=== PATIENT | male | born 1980 | race Caucasian/White ===

== ENCOUNTER → 2018-06-17 15:48 | Outpatient (CLI) | payer BC, SELFPAY ==
[2018-06-17 17:02] LABS: Absolute Lymphocyte Count 2.15 X10^3/ul (0.83-4.51); Absolute Neutrophil Count 3.8 X10^3/uL (2.0-7.7); Basophil# 0.02 X10^3/uL; Basophil% 0.3 % (0-1); Eosinophil# 0.07 X10^3/uL; Hemoglobin 14.8 g/dl (13.0-16.5); Lymphocyte # 2.15 X10^3/ul (4.0); Mean Corp Hgb Conc 33.6 g/gl (32-36); Mean Corpuscular Hgb 29.2 pg (27.0-32.0); Mean Corpuscular Volume 86.8 fL (80-94); Mean Platelet Vol. 10.7 fl (6.2-12.0); Monocyte# 0.63 X10^3/uL; Monocyte% 9.4 % (0-10); Neutrophil # 3.84 X10^3/uL (2.7-7.7); Neutrophil % 57.3 % (47-70); Platelet Count 252 K/mm3 (150-450); RBC Distribution Width SD 41.4 fl (35.1-43.9); Red Blood Count 5.07 M/mm3 (4.6-6.2); White Blood Count 6.7 K/mm3 (4.4-11.0)
[2018-06-17 17:03] LABS: POSITIVE COUNT NO; POSITIVE DIFFERENTIAL NO; POSITIVE MORPHOLOGY NO
[2018-06-17 17:42] LABS: ALB/GLOB Ratio 1.1 RATIO (0.9-2.4); AST(SGOT) 21 U/L (15-37); Alanine Aminotransfer ALT/SGPT 51 U/L (16-61); Alkaline Phosphatase 67 U/L (45-117); Anion Gap 8 (5-15); BUN 15 mg/dL (7-18); BUN/Creat Ratio 16.4 RATIO (10-20); CRP < 2.90 mg/L (0.0-3.0); Calcium,Total 8.4 mg/dL (8.5-10.1); Chloride 106 mmol/L (98-107); Cholesterol 240 mg/dL (200); Creatinine, Serum 0.92 mg/dL (0.70-1.30); EST Glomerular Filtration Rate 99 mL/min (>60); Est Glom Filt Rate - Afr Amer 120 mL/min (>60); Globulin 3.6 g/dL (2.2-4.2); Glucose 90 mg/dL (74-106); High Density Lipoprotein 35 mg/dL; Potassium 3.8 mmol/L (3.5-5.1); Protein, Total 7.6 g/dL (6.4-8.2); Sodium Level 141 mmol/L (136-145); Thyroid Stim Hormone (TSH) 1.37 uIU/mL (0.358-3.74); Triglycerides 172 mg/dL; Very Low Density Lipoprotein 34 mg/dL (5-40)
[2018-06-17 17:43] LABS: Vitamin B12 791 pg/mL (211-911)
[2018-06-21 13:18] LABS: ANTINUCLEAR ANTIBODIES DIRECT Negative (Negative)
--- OUTSIDE RECORDS SUMMARY | 2018-08-22 11:29 | XMS RPT_ITS ---
:1980 Author Organization OH[facility] Care Team Providers Name Role Phone LEX INMAN Attending Unavailable SELF, SELF Referring Unavailable Rakesh Amaya Attending Unavailable Rakesh Amaya Primary Care Unavailable PROBLEMS PROBLEMS DATE TYPE CONDITION / CODE ATTENDING STATUS SOURCE 06/17/2018 Unknown G62.9 - Rakesh Amaya Polyneuropathy, [facility] unspecified / Hospital G62.9(ICD-10) Repository 06/17/2018 Unknown Z00.00 - Rakesh Amaya Encounter for [facility] medical Repository examination without abnormal findings / Z00.00(ICD-10) 05/26/2018 Admitting Establish Care / LEX INMAN [email or web address] [facility] Diagnosis 42() E System ([place]) Repository 05/26/2018 Admitting Physical / 83() LEX INMAN [email or web address] [facility] Diagnosis E System ([place]) Repository PROCEDURES PROCEDURES No Procedure Records FoundRESULTS RESULTS CBC W/DIFF, AUTOMATED Collected: 06/17/2018 Status: F Source: [place] 3:52 PM [facility] HOSPITAL REPOSITORY TYPE CODE TESTS RESULT OUT OF RANGE REFERENCE UNITS LAB L100.1000 4.4-11.0 K/mm3 Normal WBC 6.7 LAB L100.1200 4.6-6.2 M/mm3 Normal RBC 5.07 LAB L100.1300 13.0-16.5 g/dl Normal HGB 14.8 LAB L100.1400 40-54 % Normal HCT 44.0 LAB L100.1500 80-94 fL Normal MCV 86.8 LAB L100.1600 27.0-32.0 pg Normal MCH 29.2 LAB L100.1700 32-36 g/gl Normal MCHC 33.6 LAB L100.1810 11.6-14.6 % Normal RDW CV 13.0 LAB L100.1820 35.1-43.9 fl Normal RDW SD 41.4 LAB L100.1900 150-450 K/mm3 Normal PLT 252 LAB L100.2000 6.2-12.0 fl Normal MPV 10.7 LAB L100.2100 47-70 % Normal NEUT% 57.3 LAB L100.2200 19-41 % Normal LY% 32.0 LAB L100.2300 0-10 % Normal MONO% 9.4 LAB L100.2400 0-5 % Normal EO% 1.0 LAB L100.2500 0-1 % Normal BASO% 0.3 LAB L100.2550 0.0-0.9 % Normal IM GRAN % 0.000 Result Comment: IG% - Immature Granulocytes (promyelocytes, myelocytes and metamyelocytes) > 1% indicates that a LEFT SHIFT is Present. LAB L100.2620 2.0-7.7 X10 3/uL Normal Absolute Neut 3.8 LAB L100.2720 0.83-4.51 X10 3/ul Normal Absolute Lymph 2.15 Performed By: #### L100.0100 #### [facility] [address] [place], [address] COMPREHENSIVE METABOLIC Collected: 06/17/2018 Status: F Source: [facility] 3:[place] [facility] [place] CODE TESTS RESULT OUT OF RANGE REFERENCE UNITS LAB L501.0100 74-106 mg/dL Normal GLU 90 Result Comment: Please note revised GLUCOSE reference range effective 2017. LAB L501.1000 7-18 mg/dL Normal BUN 15 LAB L501.1100 0.70-1.30 mg/dL Normal CREAT,SERUM 0.92 Result Comment: The validity of the calculated GFR AND GFRAA in patients over 70 years has not been determined. Clinical correlation is essential. LAB L501.1110 >60 mL/min Normal EST GFR 99 Result Comment: Non- GFR Calc LAB L501.1115 >60 mL/min Normal EST GFR - AA 120 Result Comment: GFR Calc LAB L501.1300 10-20 RATIO Normal BUN/CRE 16.4 LAB L501.1500 6.4-8.2 g/dL T Normal PROT 7.6 LAB L501.1800 3.2-5.0 g/dL Normal ALB 4.0 LAB L501.1950 2.2-4.2 g/dL Normal GLOB 3.6 LAB L501.2000 0.9-2.4 RATIO Normal A/G 1.1 LAB L501.2200 8.5-10.1 mg/dL Low CA 8.4 LAB L501.4100 15-37 U/L Normal AST 21 LAB L501.4305 45-117 U/L Normal ALK P 67 LAB L501.4405 16-61 U/L Normal ALT 51 LAB L501.4600 0.20-1.00 mg/dL T Normal BILI 0.80 LAB L501.5300 136-145 mmol/L NA Normal 141 LAB L501.5600 3.5-5.1 mmol/L K Normal 3.8 LAB L501.5900 98-107 mmol/L CL Normal 106 LAB L501.6100 21.0-32.0 mmol/L Normal CO2 27.0 LAB L501.6200 5-15 Normal GAP 8 Performed By: #### L500.4050, L500.4100, L501.6710, L501.9520 #### [facility] [address] [place], [address] LIPID PROFILE Collected: 06/17/2018 Status: F Source: [place] 3:[place] [facility] [place] TYPE CODE TESTS RESULT OUT OF RANGE REFERENCE UNITS LAB L501.4900 200 mg/dL High CHOL 240 Result Comment: <200 mg/dL Desirable 200-240 mg/dL Borderline >240 mg/dL High Risk LAB L501.5000 mg/dL Normal TRIG 172 Result Comment: The drugs N-Acetylcysteine and Metamizole may falsely depress this assay. Serum Triglycerides Reference Interval Normal <150 mg/dL Borderline high 150 - 199 mg/dL High 200 - 499 mg/dL Very High > or = 500 mg/dL LAB L501.6400 mg/dL Low HDL 35 Result Comment: The drugs N-Acetylcysteine and Metamizole may falsely depress this assay. Reference Range HDL <40 mg/dL Low HDL Cholesterol HDL >or= 60 mg/dL High HDL Cholesterol LAB L501.6500 0-130 mg/dL High LDL 171 LAB L501.6600 5-40 mg/dL Normal VLDL 34 Performed By: #### L500.4050, L500.4100, L501.6710, L501.9520 #### [facility] [address] [place], [address] CRP Collected: 06/17/2018 Status: F Source: [place] 3:[place] [facility] [place] CODE TESTS RESULT OUT OF RANGE REFERENCE UNITS LAB L501.6710 0.0-3.0 mg/L Normal < 2.90 C-REACTIVE PROT Result Comment: C-Reactive Protein (CRP) provides useful information for the diagnosis, therapy and monitoring of inflammatory processes and associated diseases. For the evaluation of Relative Risk for Cardiovascular Disease, a High Sensitivity CRP (HSCRP) should be ordered. Performed By: #### L500.4050, L500.4100, L501.6710, L501.9520 #### [facility] [address] [place], [address] THYROID STIM HORMONE Collected: 06/17/2018 Status: F Source: [place] ([facility]) 3:[place] [facility] [place] CODE TESTS RESULT OUT OF RANGE REFERENCE UNITS LAB L501.9520 0.358-3.74 uIU/mL Normal TSH 1.37 Performed By: #### L500.4050, L500.4100, L501.6710, L501.9520 #### [facility] [address] [place], [address] VITAMIN B12 Collected: 06/17/2018 Status: F Source: [place] 3:[place] [facility] [place] CODE TESTS RESULT OUT OF RANGE REFERENCE UNITS LAB L503.0105 211-911 pg/mL Normal Vitamin B12 791 Performed By: #### L503.0105 #### [facility] [address] [place], [address] ASPEN W/ REFLEX MULT Collected: 06/17/2018 Status: P Source: [place] 3:52 PM [facility] HOSPITAL REPOSITORY TYPE CODE TESTS RESULT OUT OF RANGE REFERENCE UNITS LAB L3100.5475 Negative Normal Negative ASPEN-DIRECT Result Comment: Performed at: - [facility] [id number] Process Mechanic: Amos Tee PhD, Phone: [phone] Performed By: #### L3100.5450 #### [facility] (refer to report for specific site) refer to report for address and phone number ALLERGIES ALLERGIES DATE TYPE / CODE NAME / CODE REACTION SEVERITY SOURCE 10/17/2016 Drug clavulanic Hives Unknown [place] Allergy/416 acid/[id number](R [facility] [id number]([facility] ED CT) Repository 10/17/2016 Drug amoxicillin/F0060 Hives Unknown [place] Allergy/416 45211(RXNORM) [facility] 930004([facility] ED CT) Repository 10/17/2016 Drug meloxicam/[id number] Other Unknown [place] Allergy/416 272(RXNORM) [place] [id number]([facility] ED CT) Repository ENCOUNTERS ENCOUNTERS ADMIT/DISCHARGE ACCOUNT NUMBER ADMITTING ENCOUNTER LOCATION SOURCE CLASS 06/17/2018 [id number] Ambulatory [place] [facility] ding:[id number] Repository 05/26/2018 [id number] [facility] [place] [address] ([place]) Repository PAYERS PAYERS ENCOUNTER GUARANTOR PAYER SUBSCRIBER SOURCE 06/17/2018 Anurag Primary Anurag Lakisha [id number] Insurance:ANTHEMPolic MuellerDOB: Pending Sale To [facility] y Number: [id number] [place], [place] [id number] Repository [id number]: santosh Date:[id number], [place] () [address]HQ: 06/17/2018 Secondary NOT GIVENUNK Lakisha Insurance:SELF PAY [facility] Number: Effective Repository Date:2018-06-17
== END ==
PROVIDERS: Family Provider Family Medicine; PCP Family Medicine; Visit Provider Family Medicine
DX: Z00.00 Encounter for general adult medical examination without abnormal findings (principal); G62.9 Polyneuropathy, unspecified
CPT/HCPCS: 36415; 80053; 80061; 82607; 84443; 85025; 86038; 86140; 86225; 86235

== ENCOUNTER → 2024-07-06 | Outpatient (CLI) | payer BC, SELFPAY ==
[2024-07-06 12:33] LABS: Absolute Lymphocyte Count 1.81 X10^3/uL (0.83-4.51); Absolute Neutrophil Count 3.9 X10^3/uL (2.0-7.7); Basophil# 0.05 X10^3/uL; Basophil% 0.8 % (0-1); Eosinophil# 0.06 X10^3/uL; Eosinophils% 0.9 % (0-5); Hematocrit 48.4 % (40-54); Lymphocyte # 1.81 X10^3/ul (0.83-4.51); Lymphocyte % 28.3 % (19-41); Mean Corp Hgb Conc 33.1 g/dL (32-36); Mean Corpuscular Hgb 28.3 pg (27.0-32.0); Mean Corpuscular Volume 85.5 fL (80-94); Mean Platelet Vol. 10.6 fl (6.2-12.0); Monocyte# 0.56 X10^3/uL; Monocyte% 8.8 % (0-10); NRBC Flagged by Analyzer 0 % (0-5); Neutrophil # 3.89 X10^3/uL (2.7-7.7); Neutrophil % 60.9 % (47-70); Platelet Count 305 K/mm3 (150-450); RBC Distribution Width CV 12.6 % (11.6-14.6); RBC Distribution Width SD 38.9 fl (35.1-43.9); Red Blood Count 5.66 M/mm3 (4.6-6.2); White Blood Count 6.4 K/mm3 (4.4-11.0)
[2024-07-06 12:57] LABS: AST(SGOT) 21 U/L (15-37); Alanine Aminotransfer ALT/SGPT 46 U/L (16-61); Alkaline Phosphatase 55 U/L (45-117); Anion Gap 7 (5-15); BUN 13 mg/dL (7-18); BUN/Creat Ratio 12.4 RATIO (10-20); Calcium,Total 9.7 mg/dL (8.5-10.1); Chloride 105 mmol/L (98-107); Cholesterol 268 mg/dL (200); Creatinine, Serum 1.05 mg/dL (0.70-1.30); EST Glomerular Filtration Rate 82 mL/min (>60); Est Glom Filt Rate - Afr Amer 99 mL/min (>60); Globulin 4.1 g/dL (2.2-4.2); Glucose 106 mg/dL (74-106); High Density Lipoprotein 45 mg/dL; Protein, Total 8.1 g/dL (6.4-8.2); Sodium Level 139 mmol/L (136-145); T4 Free Direct 1.02 ng/dL (0.76-1.46); Triglycerides 111 mg/dL; Very Low Density Lipoprotein 22 mg/dL (5-40)
[2024-07-07 17:07] LABS: Thyroglobulin Antibody < 1.0 IU/mL (0.0-0.9); Thyroid Peroxidase AB 11 IU/mL (0-34)
== END | disposition home or self-care (01) ==
PROVIDERS: PCP Family Medicine; Visit Provider Family Medicine
DX: Z00.00 Encounter for general adult medical examination without abnormal findings (principal); E04.9 Nontoxic goiter, unspecified
CPT/HCPCS: 36415; 80053; 80061; 84439; 84443; 85025; 86376; 86800